=== PATIENT | female | born 1970 | race Hispanic/Latino ===

== ENCOUNTER 2017-01-20 01:12 | Emergency (ER) | payer MEDICAID ==
[2017-01-20 01:38] VITALS: TEMP 97.6
[2017-01-20] MEDS ORDERED: Tetanus/Diphtheria Toxoids 0.5 ml Syringe IM ONE (02:04)
--- NOTE | 2017-01-20 02:34 | C.PDOC ---
Time Seen by Provider: 01/20/17 01:42 Chief Complaint (Nursing): Abnormal Skin Integrity Past Medical History Vital Signs: Last Vital Signs Temp 97.6 F 01/20/17 01:30 Pulse 100 H 01/20/17 01:30 Resp 16 01/20/17 01:30 BP 127/82 01/20/17 01:30 Pulse Ox 95 01/20/17 01:30 - Social History Hx Alcohol Use: Yes Hx Substance Use: No - Immunization History Hx Tetanus Toxoid Vaccination: No Hx Influenza Vaccination: No Hx Pneumococcal Vaccination: No ED Course And Treatment O2 Sat by Pulse Oximetry: 95 (RA) Pulse Ox Interpretation: Normal Progress Note: Head CT w/o contrast and maxillofacial CT was ordered. Patient was given Tetanus vaccine. Disposition - Disposition - PA / APPRENTICE ARCHITECT / Resident Statement MD/DO has reviewed & agrees with the documentation as recorded. - Scribe Statement The provider has reviewed the documentation as recorded by the Scribe Tiffanie Galo All medical record entries made by the Scribe were at my direction and personally dictated by me. I have reviewed the chart and agree that the record accurately reflects my personal performance of the history, physical exam, medical decision making, and the department course for this patient. I have also personally directed, reviewed, and agree with the discharge instructions and disposition.
--- NOTE | 2017-01-20 03:44 | CT ---
EXAM: CT Maxillofacial Without Intravenous Contrast EXAM DATE/TIME: 01/20/2017 2:03 AM CLINICAL HISTORY: 46 years old, female; Pain and injury or trauma; Fall; Initial encounter; Swelling and wound, open; Lip/oral cavity; Upper; Cheek bone and lip/oral cavity; Right; Eye pain; Additional info: Facial trauma TECHNIQUE: Axial computed tomography images of the face without intravenous contrast. All CT scans at this facility use one or more dose reduction techniques, viz.: automated exposure control; ma/kV adjustment per patient size (including targeted exams where dose is matched to indication; i.e. head); or iterative reconstruction technique. Coronal and sagittal reformatted images were created and reviewed. COMPARISON: No relevant prior studies available. FINDINGS: LIMITATIONS: Asymmetric positioning of the patient's head in the CT gantry. BONES/JOINTS: Suspect an acute fracture of the anterior nasal spine of the maxilla. There is nearby soft tissue swelling and air. Fractures of the anterior and lateral delgado of the left maxillary sinus, the left zygomatic arch, and the right mandible involving the ramus superiorly. These fractures are associated with sclerosis chronic appearing deformity, and are felt to represent an old rather than acute fractures. SOFT TISSUES: See above. Mild facial soft tissue swelling. No evidence of soft tissue hematoma. ORBITS: Intraorbital soft tissues appear grossly intact. No evidence of significant orbital emphysema. SINUSES: Quiñones sinus inflammatory disease. There is moderate mucosal thickening in the bilateral maxillary and bilateral ethmoid sinusitis. MASTOID AIR CELLS: Patchy fluid in the left mastoid air cells, suspicious for mild mastoiditis. NASOPHARYNX: Nasal septal deviation to the right. IMPRESSION: - Acute fracture of the anterior nasal spine of the maxilla. - Multiple additional chronic-appearing facial bone fractures, involving the left maxillary sinus, left zygomatic arch and right mandible. Recommend correlation with the site of injury and any acute pain or tenderness at these locations. - See above for remaining findings.
--- NOTE | 2017-01-20 03:53 | CT ---
EXAM: CT Head Without Intravenous Contrast EXAM DATE/TIME: 01/20/2017 2:03 AM CLINICAL HISTORY: 46 years old, female; Pain and injury or trauma; Fall; Initial encounter; Swelling (edema); Headache; Additional info: Dizziness TECHNIQUE: Axial computed tomography images of the head/brain without intravenous contrast. All CT scans at this facility use one or more dose reduction techniques, viz.: automated exposure control; ma/kV adjustment per patient size (including targeted exams where dose is matched to indication; i.e. head); or iterative reconstruction technique. Coronal and sagittal reformatted images were created and reviewed. COMPARISON: No relevant prior studies available. FINDINGS: BRAIN: No significant acute abnormality identified. No acute hemorrhage seen within the brain. No acute extra-axial fluid collections visualized. No evidence of significant mass effect within the brain. Normal ring-white matter differentiation. VENTRICLES: No evidence of significant hydrocephalus. BONES/JOINTS: No acute fractures are seen. SOFT TISSUES: Well-defined partially calcified lesion in the right upper scalp, most likely representing a complex epidermal inclusion cyst/sebaceous cyst or other similar entity. Recommend clinical correlation. MASTOID AIR CELLS: Patchy fluid in the mastoid air cells bilaterally, suspicious for mild mastoiditis. OTHER FINDINGS: Findings involving the facial bones, facial soft tissues and paranasal sinuses are described in the separate dedicated report. IMPRESSION: - No evidence of acute intracranial injury or fractures. - See above for remaining findings.
--- NOTE | 2017-01-20 04:07 | C.PDOC ---
History Of Present Illness 46 year old female with a history of chronic alcoholism was brought to the ED by EMS for evaluation of facial trauma and lip laceration. Patient states "I had a few beers and fell." Patient denies vomiting, weakness, numbness, or other complaints at this time. Time Seen by Provider: 01/20/17 01:42 Chief Complaint (Nursing): Abnormal Skin Integrity History Per: Patient, EMS History/Exam Limitations: no limitations Injury Occurred (Timing): Today @ (unknown time) Onset/Duration Of Symptoms: Unknown Loss Of Consciousness: Unsure Recent travel outside of the [place]: No Additional History Per: Prior Records Past Medical History Reviewed: Historical Data, Nursing Documentation, Vital Signs Vital Signs: Last Vital Signs Temp 97.6 F 01/20/17 01:30 Pulse 83 01/20/17 05:41 Resp 16 01/20/17 05:41 BP 99/65 L 01/20/17 05:41 Pulse Ox 95 01/20/17 06:54 Family History: States: Unknown Family Hx - Social History Hx Alcohol Use: Yes Hx Substance Use: No - Immunization History Hx Tetanus Toxoid Vaccination: No Hx Influenza Vaccination: No Hx Pneumococcal Vaccination: No Review Of Systems Neurological: Negative for: Weakness, Numbness, Headache, Dizziness Physical Exam - Physical Exam Appears: Non-toxic, No Acute Distress Skin: Warm, Dry, Other (2 cm laceration to mid-upper lip with no extension to vermilion border; 1 cm stellate laceration to buccal mucosa of the upper lip) Head: Tenderness (left periorbital area. nasal area), Laceration (2 lacerations to lips ) Eye(s): bilateral: Normal Inspection, EOMI, left: Other (periorbital ecchymosis) Nose: Tenderness Oral Mucosa: Moist Neck: Normal ROM, No Midline Cervical Tenderness, No Paracervical Tenderness, Supple Cardiovascular: Rhythm Regular Respiratory: Normal Breath Sounds, No Rhonchi, No Wheezing Gastrointestinal/Abdominal: Soft, No Tenderness, No Distention, No Guarding, No Rebound Extremity: Normal ROM, No Tenderness Neurological/Psych: Oriented x3 Gait: Unable To Assess ED Course And Treatment O2 Sat by Pulse Oximetry: 95 (RA) Pulse Ox Interpretation: Normal - CT Scan/US Head CT Other Rad Studies (CT/US): Read By Radiologist, Radiology Report Reviewed CT/US Interpretation: EXAM: CT Head Without Intravenous Contrast. EXAM DATE/ TIME: 01/20/2017 2:03 AM. CLINICAL HISTORY: 46 years old, female; Pain and injury or trauma; Fall; Initial encounter; Swelling (edema); Headache;. Additional info: Dizziness. TECHNIQUE: Axial computed tomography images of the head/brain without intravenous contrast. All CT scans at. this facility use one or more dose reduction techniques, viz.: automated exposure control; ma/ kV. adjustment per patient size (including targeted exams where dose is matched to indication; i.e. head);. or iterative reconstruction technique. Coronal and sagittal reformatted images were created and reviewed. COMPARISON: No relevant prior studies available. FINDINGS: BRAIN: No significant acute abnormality identified. No acute hemorrhage seen within the brain. No. acute extra-axial fluid collections visualized. No evidence of significant mass effect within the brain. Normal ring-white matter differentiation. VENTRICLES : No evidence of significant hydrocephalus. BONES/JOINTS: No acute fractures are seen. SOFT TISSUES: Well-defined partially calcified lesion in the right upper scalp, most likely. representing a complex epidermal inclusion cyst/ sebaceous cyst or other similar entity. Recommend. clinical correlation. MASTOID AIR CELLS: Patchy fluid in the mastoid air cells bilaterally, suspicious for mild mastoiditis. OTHER FINDINGS: Findings involving the facial bones, facial soft tissues and paranasal sinuses are. described in the separate dedicated report. IMPRESSION: - No evidence of acute intracranial injury or fractures. - See above for remaining findings. Maxillofacial CT Other Rad Studies (CT/US): Read By Radiologist, Radiology Report Reviewed CT/US Interpretation: EXAM: CT Maxillofacial Without Intravenous Contrast. EXAM DATE/TIME: 01/20/2017 2:03 AM. CLINICAL HISTORY: 46 years old, female; Pain and injury or trauma; Fall; Initial encounter; Swelling and wound, open;. Lip/oral cavity; Upper; Cheek bone and lip/oral cavity; Right; Eye pain; Additional info: Facial trauma. TECHNIQUE: Axial computed tomography images of the face without intravenous contrast. All CT scans at this. facility use one or more dose reduction techniques, viz.: automated exposure control; ma/kV. adjustment per patient size (including targeted exams where dose is matched to indication; i.e. head);. or iterative reconstruction technique. Coronal and sagittal reformatted images were created and reviewed. COMPARISON: No relevant prior studies available. FINDINGS: LIMITATIONS: Asymmetric positioning of the patient's head in the CT gantry. BONES/JOINTS: Suspect an acute fracture of the anterior nasal spine of the maxilla. There is. nearby soft tissue swelling and air. Fractures of the anterior and lateral delgado of the left maxillary sinus, the left zygomatic arch, and the. right mandible involving the ramus superiorly. These fractures are associated with sclerosis chronic. appearing deformity, and are felt to represent an old rather than acute fractures. SOFT TISSUES: See above. Mild facial soft tissue swelling. No evidence of soft tissue hematoma. ORBITS: Intraorbital soft tissues appear grossly intact. No evidence of significant orbital. emphysema. SINUSES: Quiñones sinus inflammatory disease. There is moderate mucosal thickening in the bilateral. maxillary and bilateral ethmoid sinusitis. MASTOID AIR CELLS: Patchy fluid in the left mastoid air cells, suspicious for mild mastoiditis. NASOPHARYNX: Nasal septal deviation to the right. IMPRESSION: - Acute fracture of the anterior nasal spine of the maxilla. - Multiple additional chronic-appearing facial bone fractures, involving the left maxillary sinus,. left zygomatic arch and right mandible. Recommend correlation with the site of injury and any. acute pain or tenderness at these locations. - See above for remaining findings Progress Note: Head CT and Maxillofacial CT were ordered. Patient was given Tetanus vaccine. Laceration - Laceration Repair Upper lip laceration Wound Length (In cm): 2 cm Description Of Wound: Linear Wound Cleansed With: Betadine, Sterile Saline Anesthesia: Lidocaine 1%, With Epi Wound Examination: Irrigated With Saline, No FB With Wound Exploration, No Tendon Injury With Wound Exploration Wound Debridement/Revision: Wound Debrided Wound Closure: Suture (4) Suture Technique And Material Used: Running, Prolene (5-0) Wound Complexity: Simple Buccal Mucosa Laceration Wound Length (In cm): 1 cm Description Of Wound: Stellate Wound Cleansed With: Betadine, Sterile Saline Anesthesia: Lidocaine 1%, With Epi Wound Examination: Irrigated With Saline, No FB With Wound Exploration, No Tendon Injury With Wound Exploration Wound Debridement/Revision: Wound Debrided Wound Closure: Suture (2) Suture Technique And Material Used: Vicryl (4-0) Wound Complexity: Simple Medical Decision Making Medical Decision Making: Patient is now awake and alert. Patient's gait is steady. Patient tolerated laceration repair well and will be discharged home. Disposition - Disposition Disposition: HOME/ ROUTINE Disposition Time: 07:03 Condition: GOOD Additional Instructions: Please follow up in clinic Take meds as directed Suture removal in 7 days to upper lip Return to ER if worse Instructions: Nasal Fracture (ED), Acute Dental Trauma (ED), Abuse of Alcohol ( ED) Forms: [employer] (Guyanese) - Clinical Impression Clinical Impression: Laceration - injury, Laceration of upper lip, complicated, Nasal bone fracture , Facial trauma, Alcohol abuse - PA / BENCH JEWELER / Resident Statement MD/DO has reviewed & agrees with the documentation as recorded. - Scribe Statement The provider has reviewed the documentation as recorded by the Scribe Tiffanie Galo All medical record entries made by the Shi were at my direction and personally dictated by me. I have reviewed the chart and agree that the record accurately reflects my personal performance of the history, physical exam, medical decision making, and the department course for this patient. I have also personally directed, reviewed, and agree with the discharge instructions and disposition.
[2017-01-20] MEDS ORDERED: Bacitracin 500 Units/gm Oint Foilpak UD ONE (06:30)
[2017-01-20] MEDS ORDERED: Lidocaine 1% Inj (20ml) ONE (06:30)
[2017-01-20] MEDS ORDERED: Acetaminophen 650mg/20.3ml solution UD PO STA (08:28)
[2017-01-20] MEDS ORDERED: Acetaminophen 650mg/20.3ml solution UD ONE (08:33)
[2017-01-20 08:54] VITALS: RESP 18
[2017-01-20 13:03] VITALS: O2SAT 99
[2017-01-20 15:30] VITALS: BP 112/77; PULSE 80
== END 2017-01-20 16:32 | disposition home or self-care (01) ==
LOC: C.ER 01:12
DX: S01.511A Laceration without foreign body of lip, initial encounter (principal); S02.2XXA Fracture of nasal bones, initial encounter for closed fracture; W18.30XA Fall on same level, unspecified, initial encounter; F10.10 Alcohol abuse, uncomplicated; Y90.9 Presence of alcohol in blood, level not specified